=== PATIENT | male | born 1935 | race African-American/Black ===

== ENCOUNTER 2018-11-25 08:29 | Inpatient (IN) | payer MEDICARE, BC ==
[~2018-11-25] VITALS: Ht 182.9 cm; Wt 70.3 kg
[~2018-11-25 08:29] MED LIST: ASPI-986; PRAV80TA21; PROT40; TERA2CAP4; amlodipine; diovan; metformin; niacin
[2018-11-25] MEDS ORDERED: METHYLPREDNISOLONE SOD SUCC 125 MG/2 ML VIAL IV ONE (09:00)
[2018-11-25] MEDS ORDERED: DIPHENHYDRAMINE 50MG/ML VIAL IV ONE (09:00)
[2018-11-25] MEDS ORDERED: FAMOTIDINE 20MG/2ML VIAL IV ONE (09:00)
[2018-11-25 09:08] LABS: BASOPHILS % 0.4 % (0.0-2.0); EOSINOPHILS % 1.9 % (0.0-5.0); HEMATOCRIT. 39.6 % (42.0-52.0); HEMOGLOBIN. 13.7 g/dL (14.0-18.0); LYMPHOCYTES % 25.9 % (20.0-50.0); MEAN CORPUSCULAR HEMOGLOBIN 27.9 pg (28.0-32.0); MEAN CORPUSCULAR VOLUME 80.6 fL (80.0-94.0); MEAN PLATELET VOLUME 8.3 fl (7.4-10.4); MONOCYTES % 6.4 % (2.0-8.0); NEUTROPHILS % 65.4 % (40.0-76.0); PLATELET 250 x1000/uL (130-400); RED BLOOD CELL COUNT 4.91 mill/uL (4.7-6.1)
[2018-11-25 09:14] LABS: CHLORIDE 110 mEq/L (98-107)
[2018-11-25 09:17] LABS: PARTIAL THROMBOPLASTIN TIME 26.6 sec (23.4-31.0)
[2018-11-25] MEDS ORDERED: MAGNESIUM/ALUMINUM HYDROXIDE/SIMETHICONE 30ML UDC PO PRN (10:30)
[2018-11-25] MEDS ORDERED: CLONIDINE 0.1MG TABLET PO PRN (10:30)
[2018-11-25] MEDS ORDERED: DIPHENHYDRAMINE 50MG/ML VIAL IV PRN (10:30)
[2018-11-25] MEDS ORDERED: ACETAMINOPHEN 325MG TABLET PO PRN (10:30)
[2018-11-25] MEDS ORDERED: ONDANSETRON HCL 4MG/2ML INJ IV PRN (10:30)
[2018-11-25] MEDS ORDERED: METHYLPREDNISOLONE SOD SUCC 40 MG/ML VIAL IV SCH (12:36)
[2018-11-25 14:30] VITALS: BP 153/73
[2018-11-25 20:00] VITALS: BP_SYST 123; BP_SYST 158; BP_DIAS 58; BP_DIAS 83
[2018-11-25] MEDS ORDERED: TERA5CAP4 PO (21:19)
[2018-11-25] MEDS ORDERED: LISI40TA4 PO (21:19)
[2018-11-25] MEDS ORDERED: POTA20TA82 PO (21:19)
[2018-11-25] MEDS ORDERED: PRAV80TA21 PO (21:19)
[2018-11-25] MEDS ORDERED: RANI150C12 PO (21:19)
[2018-11-25] MEDS ORDERED: METF1000 PO (21:19)
[2018-11-25] MEDS ORDERED: AMLO10TA80 PO (21:19)
[2018-11-25] MEDS ORDERED: DEXTROSE 50% WATER 50ML SYRINGE IV PRN (21:30)
[2018-11-25] MEDS: METHYLPREDNISOLONE SOD SUCC 40 MG/ML VIAL IV SCH (21:34)
[2018-11-26] VITALS: BP 146/71
[2018-11-26 04:00] VITALS: BP 139/70
[2018-11-26 06:47] LABS: BASOPHILS % 0.2 % (0.0-2.0); HEMATOCRIT. 34.6 % (42.0-52.0); HEMOGLOBIN. 12.3 g/dL (14.0-18.0); LYMPHOCYTES % 8.8 % (20.0-50.0); MEAN CORPUSCULAR HEMOGLOBIN 28.3 pg (28.0-32.0); MEAN CORPUSCULAR VOLUME 79.8 fL (80.0-94.0); MEAN PLATELET VOLUME 8.3 fl (7.4-10.4); MONOCYTES % 3.2 % (2.0-8.0); NEUTROPHILS % 87.8 % (40.0-76.0); PLATELET 247 x1000/uL (130-400); RED BLOOD CELL COUNT 4.34 mill/uL (4.7-6.1); RED CELL DISTRIBUTION WIDTH 14.9 % (11.6-14.6)
[2018-11-26] MEDS ORDERED: BLOOD SUGAR DIAGNOSTIC STRIP TEST SCH (07:40)
[2018-11-26 07:45] LABS: CHLORIDE 112 mEq/L (98-107)
[2018-11-26 08:00] VITALS: BP 147/75
[2018-11-26] MEDS ORDERED: INSULIN LISPRO 100 UNITS/ML SUBCUT SCH (08:10)
[2018-11-26] MEDS: METHYLPREDNISOLONE SOD SUCC 40 MG/ML VIAL IV SCH (08:58)
[2018-11-26] MEDS ORDERED: AMLODIPINE 10MG TABLET PO SCH (09:00)
[2018-11-26] MEDS ORDERED: ASPIRIN 325MG EC TABLET PO SCH (09:00)
[2018-11-26 11:05] VITALS: BP 147/75
== END 2018-11-26 13:00 | disposition home or self-care (01) | DRG 916 ==
LOC: ER 08:29 → 7WST 09:22 → EDBEDREQ 09:23 → ENRESERV 12:53
PROVIDERS: ADMIT Hospitalist; ATTEND Hospitalist
DX: T78.3XXA Angioneurotic edema, initial encounter (principal); E11.65 Type 2 diabetes mellitus with hyperglycemia; E78.00 Pure hypercholesterolemia, unspecified; E78.5 Hyperlipidemia, unspecified; F17.210 Nicotine dependence, cigarettes, uncomplicated; T46.4X5A Adverse effect of angiotensin-converting-enzyme inhibitors, initial encounter; I10 Essential (primary) hypertension; I25.10 Atherosclerotic heart disease of native coronary artery without angina pectoris; Z82.49 Family history of ischemic heart disease and other diseases of the circulatory system; Z79.82 Long term (current) use of aspirin; Z79.84 Long term (current) use of oral hypoglycemic drugs; Z95.5 Presence of coronary angioplasty implant and graft; Y92.89 Other specified places as the place of occurrence of the external cause
CPT/HCPCS: 36415; 71045; 80048; 82962; 93005; 93970; 96374; 96375; 99285; J1200; J1815; J2920; J2930; J3490

== ENCOUNTER 2020-01-03 01:50 | Inpatient (IN) | payer MEDICARE, BC ==
[2020-01-03] VITALS (49 sets, daily range): BP systolic 76–176; BP diastolic 37–97
[~2020-01-03] VITALS: Ht 182.9 cm; Wt 63.1 kg
[~2020-01-03 01:50] MED LIST changes: +AMLO10TA80 PO; -ASPI-986; +METF1000 PO; +POTA20TA82 PO; -PRAV80TA21; +PRAV80TA21 PO; -PROT40; +RANI150C12 PO; -TERA2CAP4; +TERA5CAP4 PO; -amlodipine; -diovan; -metformin; -niacin
[2020-01-03] MEDS ORDERED: SODIUM CHLORIDE 0.9% 1,000 ML IV ONE ×3 (02:25→07:00)
[2020-01-03] MEDS ORDERED: ONDANSETRON HCL 4MG/2ML INJ IV STA (02:25)
[2020-01-03 02:51] LABS: CHLORIDE 112 mEq/L (98-107)
[2020-01-03 03:09] LABS: BASOPHILS % 0.4 % (0.0-2.0); EOSINOPHILS % 1.9 % (0.0-5.0); HEMATOCRIT. 30.1 % (42.0-52.0); HEMOGLOBIN. 10.5 g/dL (14.0-18.0); LYMPHOCYTES % 22.1 % (20.0-50.0); MEAN CORPUSCULAR HEMOGLOBIN 28.4 pg (28.0-32.0); MEAN CORPUSCULAR VOLUME 81.1 fL (80.0-94.0); MEAN PLATELET VOLUME 8.3 fl (7.4-10.4); MONOCYTES % 5.5 % (2.0-8.0); NEUTROPHILS % 70.1 % (40.0-76.0); PLATELET 246 x1000/uL (130-400); RED BLOOD CELL COUNT 3.71 mill/uL (4.7-6.1); RED CELL DISTRIBUTION WIDTH 16.3 % (11.6-14.6)
[2020-01-03 03:13] LABS: PROTHROMBIN TIME 10.6 sec (9.6-11.0)
[2020-01-03] MEDS: INSULIN LISPRO 100 UNITS/ML SUBCUT SCH ×4 (07:00→20:28)
[2020-01-03] MEDS ORDERED: ACETAMINOPHEN 325MG TABLET PO PRN ×2 (07:00)
[2020-01-03] MEDS ORDERED: IPRATROPIUM/ALBUTEROL 0.5-3(2.5)MG/3ML NEB ORI PRN (07:00)
[2020-01-03] MEDS ORDERED: NITROGLYCERIN 0.4MG TABLET SL SL PRN (07:00)
[2020-01-03] MEDS ORDERED: MAGNESIUM/ALUMINUM HYDROXIDE/SIMETHICONE 30ML UDC PO PRN (07:00)
[2020-01-03] MEDS ORDERED: DOCUSATE SODIUM 100MG CAPSULE PO PRN (07:00)
[2020-01-03] MEDS ORDERED: MORPHINE SULFATE 4 MG/ML CPJ (NOT FOR IM USE) IV PRN (07:00)
[2020-01-03] MEDS ORDERED: DEXTROSE 50% WATER 50ML SYRINGE IV PRN (07:00)
[2020-01-03] MEDS: PANTOPRAZOLE SODIUM 40 MG/VIAL IV SCH ×2 (07:45→17:50)
[2020-01-03] MEDS ORDERED: SODIUM CHLORIDE 0.9% 1,000 ML IV SCH (09:30)
[2020-01-03] MEDS ORDERED: DOPAMINE 400MG/250ML PREMIX 250 ML IV PRN (09:45)
[2020-01-03] MEDS ORDERED: PHENYLEPHRINE 10 MG in DEXT 5% WATER 249 ML IV PRN (09:45)
[2020-01-03 09:53] LABS: BG BASE EXCESS -11.6 mmol/L (-2.0-2.0); BG CARBOXYHEMOGLOBIN 0.4 % (0.5-1.5); BG DEOXYHEMOGLOBIN 1.8 % (0.0-5.0); BG FRACTION INSPIRED OXYGEN 2; BG HCO3 ACT 12.5 mmol/L (22.0-26.0); BG METHEMOGLOBIN 0.1 % (0.0-1.5); BG OXYGEN SATURATION 98.2 % (92.0-98.5); BG OXYHEMOGLOBIN 97.7 % (94.0-97.0); BG PCO2 22.3 mmHg (35.0-45.0); BG PH 7.367 (7.350-7.450); BG PO2 145.9 mmHg (75.0-100.0); BG SAMPLE SITE RIGHT RADIAL; BG VENT MODE NASAL CANNULA
[2020-01-03] MEDS: ONDANSETRON HCL 4MG/2ML INJ IV PRN ×2 (09:57→15:39)
[2020-01-03 10:48] LABS: BASOPHILS % 0.2 % (0.0-2.0); EOSINOPHILS % 0.1 % (0.0-5.0); HEMATOCRIT. 22.5 % (42.0-52.0); HEMOGLOBIN. 7.7 g/dL (14.0-18.0); LYMPHOCYTES % 14.2 % (20.0-50.0); MEAN CORPUSCULAR HEMOGLOBIN 30.1 pg (28.0-32.0); MEAN CORPUSCULAR VOLUME 88.5 fL (80.0-94.0); MEAN PLATELET VOLUME 9.4 fl (7.4-10.4); MONOCYTES % 3.9 % (2.0-8.0); NEUTROPHILS % 81.6 % (40.0-76.0); PLATELET 143 x1000/uL (130-400); RED BLOOD CELL COUNT 2.55 mill/uL (4.7-6.1); RED CELL DISTRIBUTION WIDTH 17.2 % (11.6-14.6)
[2020-01-03] MEDS ORDERED: SODIUM CHL 0.9% + KCL 20MEQ/L 1,000 ML IV SCH (11:00)
[2020-01-03] MEDS ORDERED: ALBUMIN HUMAN 25GM/500ML (5%) IV NR (11:00)
[2020-01-03] MEDS: NOREPINEPHRINE 4 MG in DEXT 5% WATER 246 ML IV PRN ×2 (11:13→13:44)
[2020-01-03] MEDS ORDERED: PIPERACILLIN/TAZOBACTAM 2.25 G in DEXTROSE 5% WATER 50 ML IV SCH (11:45)
[2020-01-03 11:58] LABS: CHLORIDE 121 mEq/L (98-107)
[2020-01-03 12:17] LABS: TOTAL IRON BINDING CAPACITY 208 ug/dL (250-450)
[2020-01-03] MEDS: BLOOD SUGAR DIAGNOSTIC STRIP TEST SCH ×3 (12:30→20:19)
[2020-01-03] MEDS: PIPERACILLIN/TAZOBACTAM 2.25 G in DEXTROSE 5% WATER 50 ML IV SCH ×2 (13:00→17:50)
[2020-01-03 15:21] LABS: VITAMIN B12 SERUM 710 pg/mL (211-911)
[2020-01-03 15:30] LABS: FOLIC ACID (FOLATE) SERUM > 20.00 ng/mL (>5.38)
[2020-01-03 15:53] LABS: HEMATOCRIT 24.3 % (42.0-52.0); HEMOGLOBIN 8.3 g/dL (14.0-18.0)
[2020-01-03 16:10] LABS: CREATINE KINASE MB FRACTION 1.2 ng/mL (0.5-3.6)
[2020-01-03] MEDS ORDERED: ZOLPIDEM TARTRATE 5MG TABLET PO PRN (21:00)
[2020-01-03 21:52] LABS: HEMATOCRIT 27.5 % (42.0-52.0); HEMOGLOBIN 9.6 g/dL (14.0-18.0)
[2020-01-03 22:10] LABS: CREATINE KINASE MB FRACTION 2.3 ng/mL (0.5-3.6)
[2020-01-04] VITALS (19 sets, daily range): BP systolic 100–177; BP diastolic 55–107
[2020-01-04] MEDS: PIPERACILLIN/TAZOBACTAM 2.25 G in DEXTROSE 5% WATER 50 ML IV SCH ×4 (00:18→17:34)
[2020-01-04 01:11] LABS: HEMOGLOBIN 9.5 g/dL (14.0-18.0)
[2020-01-04] MEDS: CLONIDINE 0.1MG TABLET PO PRN ×2 (01:27→17:34)
[2020-01-04 06:05] LABS: BASOPHILS % 0.1 % (0.0-2.0); HEMATOCRIT. 26.4 % (42.0-52.0); HEMOGLOBIN. 9.3 g/dL (14.0-18.0); LYMPHOCYTES % 8.8 % (20.0-50.0); MEAN CORPUSCULAR HEMOGLOBIN 30.2 pg (28.0-32.0); MEAN CORPUSCULAR VOLUME 85.4 fL (80.0-94.0); MEAN PLATELET VOLUME 9.3 fl (7.4-10.4); MONOCYTES % 7.3 % (2.0-8.0); NEUTROPHILS % 83.8 % (40.0-76.0); PLATELET 118 x1000/uL (130-400); RED BLOOD CELL COUNT 3.09 mill/uL (4.7-6.1); RED CELL DISTRIBUTION WIDTH 15.5 % (11.6-14.6)
[2020-01-04] MEDS: PANTOPRAZOLE SODIUM 40 MG/VIAL IV SCH ×2 (06:21→17:33)
[2020-01-04] MEDS: BLOOD SUGAR DIAGNOSTIC STRIP TEST SCH ×4 (07:50→20:52)
[2020-01-04] MEDS: INSULIN LISPRO 100 UNITS/ML SUBCUT SCH ×4 (08:20→21:00)
[2020-01-04] MEDS ORDERED: AMLODIPINE 2.5MG TABLET PO SCH (10:00)
[2020-01-04] MEDS ORDERED: SODIUM CHLORIDE 0.9% 1,000 ML IV SCH (10:15)
[2020-01-04] MEDS: METOPROLOL TARTRATE 50MG TABLET PO SCH ×2 (10:31→20:51)
[2020-01-04 12:09] LABS: HEMATOCRIT 26.1 % (42.0-52.0); HEMOGLOBIN 9.2 g/dL (14.0-18.0)
[2020-01-04] MEDS: DEXTROSE 5% WATER 1,000 ML IV SCH (19:06)
[2020-01-04 19:47] LABS: HEMATOCRIT 23.5 % (42.0-52.0)
[2020-01-04] MEDS: SORBITOL 70% SOLN 30ML PO SCH (20:49)
[2020-01-04] MEDS: AMLODIPINE 2.5MG TABLET PO SCH (20:52)
[2020-01-05] VITALS (8 sets, daily range): BP systolic 101–175; BP diastolic 54–94
[2020-01-05] MEDS: SORBITOL 70% SOLN 30ML PO SCH ×5 (00:04→16:00)
[2020-01-05] MEDS: PIPERACILLIN/TAZOBACTAM 2.25 G in DEXTROSE 5% WATER 50 ML IV SCH ×4 (00:05→18:19)
[2020-01-05 03:32] LABS: BASOPHILS % 0.1 % (0.0-2.0); EOSINOPHILS % 0.2 % (0.0-5.0); HEMATOCRIT. 25.2 % (42.0-52.0); HEMOGLOBIN. 8.8 g/dL (14.0-18.0); LYMPHOCYTES % 13.7 % (20.0-50.0); MEAN CORPUSCULAR HEMOGLOBIN 30.1 pg (28.0-32.0); MEAN CORPUSCULAR VOLUME 85.8 fL (80.0-94.0); MEAN PLATELET VOLUME 8.8 fl (7.4-10.4); MONOCYTES % 8.8 % (2.0-8.0); NEUTROPHILS % 77.2 % (40.0-76.0); PLATELET 115 x1000/uL (130-400); RED BLOOD CELL COUNT 2.93 mill/uL (4.7-6.1); RED CELL DISTRIBUTION WIDTH 15.2 % (11.6-14.6)
[2020-01-05 03:46] LABS: CHLORIDE 115 mEq/L (98-107)
[2020-01-05 03:54] LABS: PHOSPHORUS 2.8 mg/dL (2.5-4.9); PROTHROMBIN TIME 10.7 sec (9.6-11.0)
[2020-01-05] MEDS: PANTOPRAZOLE SODIUM 40 MG/VIAL IV SCH ×2 (06:31→18:19)
[2020-01-05] MEDS: BLOOD SUGAR DIAGNOSTIC STRIP TEST SCH ×4 (06:31→21:56)
[2020-01-05] MEDS: INSULIN LISPRO 100 UNITS/ML SUBCUT SCH ×4 (07:50→21:00)
[2020-01-05] MEDS: METOPROLOL TARTRATE 50MG TABLET PO SCH ×2 (08:50→21:55)
[2020-01-05] MEDS: AMLODIPINE 2.5MG TABLET PO SCH ×2 (08:51→21:56)
[2020-01-05] MEDS ORDERED: POTASSIUM CHLORIDE INJ 40 MEQ in DEXT 5% WATER 250 ML IV SCH (12:00)
[2020-01-05] MEDS: DEXTROSE 5% WATER 1,000 ML IV SCH ×2 (12:23→21:10)
[2020-01-05] MEDS: CLONIDINE 0.1MG TABLET PO PRN (14:01)
[2020-01-05] MEDS ORDERED: MIDAZOLAM HCL 5 MG/5 ML VIAL ONE (14:13)
[2020-01-05] MEDS ORDERED: FENTANYL CITRATE/PF 50MCG/ML 2ML VIAL ONE (14:13)
[2020-01-05] MEDS ORDERED: FENTANYL CITRATE/PF 50MCG/ML 2ML VIAL IV PRN (14:36)
[2020-01-05] MEDS ORDERED: MIDAZOLAM HCL 2 MG/2 ML VIAL IV PRN (14:37)
[2020-01-06] VITALS (10 sets, daily range): BP systolic 104–150; BP diastolic 59–69
[2020-01-06] MEDS: PIPERACILLIN/TAZOBACTAM 2.25 G in DEXTROSE 5% WATER 50 ML IV SCH ×5 (00:47→23:34)
[2020-01-06] MEDS: PANTOPRAZOLE SODIUM 40 MG/VIAL IV SCH ×2 (05:57→18:15)
[2020-01-06 06:50] LABS: HEMATOCRIT 25.1 % (42.0-52.0); HEMOGLOBIN 9.2 g/dL (14.0-18.0)
[2020-01-06] MEDS: BLOOD SUGAR DIAGNOSTIC STRIP TEST SCH ×4 (06:52→20:25)
[2020-01-06] MEDS: INSULIN LISPRO 100 UNITS/ML SUBCUT SCH ×4 (07:21→20:25)
[2020-01-06] MEDS: SORBITOL 70% SOLN 30ML PO SCH ×5 (08:00→23:34)
[2020-01-06] MEDS: METOPROLOL TARTRATE 50MG TABLET PO SCH ×2 (08:37→20:24)
[2020-01-06] MEDS: AMLODIPINE 2.5MG TABLET PO SCH ×2 (08:37→20:24)
[2020-01-06 09:43] LABS: INR 0.9; PROTHROMBIN TIME 10.1 sec (9.6-11.0)
[2020-01-07 00:01] VITALS: BP 124/61
[2020-01-07 04:00] VITALS: BP 142/67
[2020-01-07] MEDS: SORBITOL 70% SOLN 30ML PO SCH ×2 (04:00→08:50)
[2020-01-07] MEDS: PANTOPRAZOLE SODIUM 40 MG/VIAL IV SCH (05:05)
[2020-01-07] MEDS: PIPERACILLIN/TAZOBACTAM 2.25 G in DEXTROSE 5% WATER 50 ML IV SCH (05:05)
[2020-01-07 06:11] LABS: CHLORIDE 111 mEq/L (98-107)
[2020-01-07] MEDS: BLOOD SUGAR DIAGNOSTIC STRIP TEST SCH (06:32)
[2020-01-07] MEDS: INSULIN LISPRO 100 UNITS/ML SUBCUT SCH (07:50)
[2020-01-07 08:00] VITALS: BP 135/68
[2020-01-07 08:27] LABS: BASOPHILS % 0.2 % (0.0-2.0); EOSINOPHILS % 1.6 % (0.0-5.0); HEMATOCRIT. 27.7 % (42.0-52.0); LYMPHOCYTES % 20.8 % (20.0-50.0); MEAN CORPUSCULAR HEMOGLOBIN 31.2 pg (28.0-32.0); MEAN CORPUSCULAR VOLUME 86.4 fL (80.0-94.0); MEAN PLATELET VOLUME 8.7 fl (7.4-10.4); MONOCYTES % 9.8 % (2.0-8.0); NEUTROPHILS % 67.6 % (40.0-76.0); PLATELET 139 x1000/uL (130-400); RED BLOOD CELL COUNT 3.21 mill/uL (4.7-6.1); RED CELL DISTRIBUTION WIDTH 14.8 % (11.6-14.6)
[2020-01-07] MEDS: AMLODIPINE 2.5MG TABLET PO SCH (08:54)
[2020-01-07] MEDS: METOPROLOL TARTRATE 50MG TABLET PO SCH (08:55)
[2020-01-07 09:13] VITALS: BP 135/68
== END 2020-01-07 10:00 | disposition home health service (06) | DRG 377 ==
LOC: ER 01:50 → MICUSO 05:04 → EDBEDREQTM 05:05 → EDBEDREQ 05:05 → CVICU 09:19 → 6WST 01-04 15:59
PROVIDERS: ADMIT Internal Medicine; ATTEND Internal Medicine
PROC: 30233N1 Transfusion of Nonautologous Red Blood Cells into Peripheral Vein, Percutaneous Approach (ICD-10-PCS; 2020-01-03)
PROC: B54MZZA Ultrasonography of Right Upper Extremity Veins, Guidance (ICD-10-PCS; 2020-01-03)
PROC: 05HY33Z Insertion of Infusion Device into Upper Vein, Percutaneous Approach (ICD-10-PCS; 2020-01-03)
PROC: 0DBK8ZZ Excision of Ascending Colon, Via Natural or Artificial Opening Endoscopic (ICD-10-PCS; principal; 2020-01-05)
PROC: 0DBE8ZX Excision of Large Intestine, Via Natural or Artificial Opening Endoscopic, Diagnostic (ICD-10-PCS; 2020-01-05)
PROC: 0DBH8ZX Excision of Cecum, Via Natural or Artificial Opening Endoscopic, Diagnostic (ICD-10-PCS; 2020-01-05)
DX: K57.31 Diverticulosis of large intestine without perforation or abscess with bleeding (principal); N17.0 Acute kidney failure with tubular necrosis; E43 Unspecified severe protein-calorie malnutrition; R57.1 Hypovolemic shock; D62 Acute posthemorrhagic anemia; E87.0 Hyperosmolality and hypernatremia; E87.2 Acidosis; G40.89 Other seizures; Z68.1 Body mass index [BMI] 19.9 or less, adult; N18.9 Chronic kidney disease, unspecified; E11.22 Type 2 diabetes mellitus with diabetic chronic kidney disease; E87.6 Hypokalemia; E78.00 Pure hypercholesterolemia, unspecified; E78.5 Hyperlipidemia, unspecified; I25.10 Atherosclerotic heart disease of native coronary artery without angina pectoris; I10 Essential (primary) hypertension; E83.51 Hypocalcemia; F17.210 Nicotine dependence, cigarettes, uncomplicated; K21.9 Gastro-esophageal reflux disease without esophagitis; K63.89 Other specified diseases of intestine; Z82.3 Family history of stroke; Z82.49 Family history of ischemic heart disease and other diseases of the circulatory system; Z85.46 Personal history of malignant neoplasm of prostate; I25.2 Old myocardial infarction; Z90.79 Acquired absence of other genital organ(s); Z95.5 Presence of coronary angioplasty implant and graft; Z88.8 Allergy status to other drugs, medicaments and biological substances; Z79.84 Long term (current) use of oral hypoglycemic drugs; Z79.899 Other long term (current) drug therapy; D12.2 Benign neoplasm of ascending colon
CPT/HCPCS: 36415; 36600; 71045; 74176; 76937; 78278; 80048; 80053; 82270; 82375; 82550; 82553; 82607; 82728; 82746; 82805; 82962; 83036; 83540; 83550; 83735; 84100; 84484; 85014; 85018; 85025; 85044; 85049; 85384; 85651; 86850; 86900; 86920; 88305; 93005; 93306; 93970; 97162; 97166; 99291; A9560; C1725; C9113; J1815; J2250; J2405; J2543; J3010; J3480; J3490; J7030; J7060; J7070; P9016; P9041

== ENCOUNTER 2020-12-04 10:44 | Inpatient (IN) | payer MEDICARE, BC ==
[~2020-12-04] VITALS: Ht 185.4 cm; Wt 66.0 kg
[2020-12-04] MEDS ORDERED: SODIUM CHLORIDE 0.9% 1,000 ML IV ONE (11:30)
[2020-12-04] MEDS ORDERED: MORPHINE SULFATE 2 MG/ML CPJ (NOT FOR IM USE) IV NR (11:33)
[2020-12-04 11:38] LABS: HEMATOCRIT. 34.3 % (42.0-52.0); HEMOGLOBIN. 12.1 g/dL (14.0-18.0); MEAN CORPUSCULAR HEMOGLOBIN 28.5 pg (28.0-32.0); MEAN CORPUSCULAR VOLUME 80.4 fL (80.0-94.0); MEAN PLATELET VOLUME 7.9 fl (7.4-10.4); PLATELET 233 x1000/uL (130-400); RED BLOOD CELL COUNT 4.26 mill/uL (4.7-6.1); RED CELL DISTRIBUTION WIDTH 15.8 % (11.6-14.6)
[2020-12-04 11:39] LABS: CLARITY URINE CLEAR (CLEAR); COLOR URINE YELLOW (YELLOW); KETONES URINE NEGATIVE (NEGATIVE); LEUKOCYTE ESTERASE URINE NEGATIVE (NEGATIVE); NITRITE URINE NEGATIVE (NEGATIVE); OCCULT BLOOD URINE TRACE (NEGATIVE); PROTEIN URINE 2+ (NEGATIVE); SPECIFIC GRAVITY URINE 1.018 (1.005-1.030); UROBILINOGEN URINE 0.2 E.U./dL (0.2-1.0)
[2020-12-04 11:45] LABS: CHLORIDE 103 mEq/L (98-107)
[2020-12-04 11:49] LABS: PROTHROMBIN TIME 10.8 sec (9.6-11.0)
[2020-12-04] MEDS ORDERED: POTASSIUM CHLORIDE INJ 40 MEQ in DEXT 5% WATER 250 ML IV NR (12:15)
[2020-12-04] MEDS ORDERED: LACTATED RINGERS 1,000 ML IV SCH (12:15)
[2020-12-04] MEDS ORDERED: AMIODARONE HCL 150 MG in DEXT 5% WATER 97 ML IV ONE (12:30)
[2020-12-04] MEDS ORDERED: MAGNESIUM 1 G PREMIX 100 ML IV ONE (12:30)
[2020-12-04] MEDS ORDERED: HYDRALAZINE 20MG/ML VIAL IV SCH (13:15)
[2020-12-04] MEDS ORDERED: POTASSIUM CHLORIDE 20MEQ/PACKET PO SCH (14:00)
[2020-12-04 14:23] LABS: PLATELET ESTIMATE NORMAL
[2020-12-04] MEDS ORDERED: IOHEXOL-300 100 ML BOTTLE ONE (14:26)
[2020-12-04] MEDS ORDERED: AMLODIPINE 10MG TABLET PO ONE (15:15)
[2020-12-04] MEDS ORDERED: GUAIFENESIN 200MG/10ML SUGAR FREE UDC PO PRN (15:30)
[2020-12-04] MEDS ORDERED: HYDROCODONE/ACETAMINOPHEN 5/325MG TABLET PO PRN (15:30)
[2020-12-04] MEDS ORDERED: LORAZEPAM 2MG/ML CPJ IV PRN (15:30)
[2020-12-04] MEDS ORDERED: IPRATROPIUM/ALBUTEROL 0.5-3(2.5)MG/3ML NEB HHN PRN (15:30)
[2020-12-04] MEDS ORDERED: ONDANSETRON HCL 4MG/2ML INJ IV PRN (15:30)
[2020-12-04] MEDS ORDERED: MAGNESIUM/ALUMINUM HYDROXIDE/SIMETHICONE 30ML UDC PO PRN (15:30)
[2020-12-04] MEDS ORDERED: DIPHENHYDRAMINE 50MG/ML VIAL IV PRN (15:30)
[2020-12-04] MEDS ORDERED: ACETAMINOPHEN 325MG TABLET PO PRN (15:30)
[2020-12-04] MEDS ORDERED: MORPHINE SULFATE 2 MG/ML CPJ (NOT FOR IM USE) IV PRN (15:30)
[2020-12-04] MEDS ORDERED: BISACODYL 10MG SUPP PR PRN (16:15)
[2020-12-04 17:45] VITALS: BP 156/89
[2020-12-04] MEDS ORDERED: INFLUENZA VACCINE 05/PF 0.5 ML VIAL IM ONE (18:15)
[2020-12-04 18:30] VITALS: BP 179/110
[2020-12-04 18:43] VITALS: BP 181/88
[2020-12-04] MEDS: METOCLOPRAMIDE HCL 10MG/2ML VIAL IV SCH (18:51)
[2020-12-04] MEDS: HYDRALAZINE 20MG/ML VIAL IV PRN (18:53)
[2020-12-04] MEDS: ENOXAPARIN 40MG/0.4ML SYR SUBCUT SCH (18:54)
[2020-12-04] MEDS: DEXT 5%/0.45% NACL 1000ML 1,000 ML IV SCH (19:45)
[2020-12-04 19:51] VITALS: BP 153/86
[2020-12-04 21:41] VITALS: BP 151/77
[2020-12-04] MEDS: DOCUSATE SODIUM 100MG CAPSULE PO PRN (21:42)
[2020-12-04] MEDS: SODIUM CHLORIDE 0.9% INJ 3ML FLUSH IVF SCH (21:43)
[2020-12-04 22:28] LABS: CREATINE KINASE MB FRACTION 2.9 ng/mL (0.5-3.6)
[2020-12-04 23:41] VITALS: BP 158/95
[2020-12-05] VITALS (14 sets, daily range): BP systolic 102–175; BP diastolic 61–107
[2020-12-05] MEDS ORDERED: KCL 20MEQ/100ML PREMIX 100 ML IV PRN
[2020-12-05] MEDS: METOCLOPRAMIDE HCL 10MG/2ML VIAL IV SCH ×5 (00:50→23:40)
[2020-12-05] MEDS ORDERED: POTASSIUM CHLORIDE INJ 60 MEQ in DEXT 5% WATER 250 ML IV PRN (03:30)
[2020-12-05] MEDS ORDERED: POTASSIUM CHLORIDE INJ 40 MEQ in DEXT 5% WATER 250 ML IV PRN (03:30)
[2020-12-05] MEDS: CLONIDINE 0.1MG TABLET PO PRN ×2 (03:36→19:00)
[2020-12-05] MEDS: SODIUM CHLORIDE 0.9% INJ 3ML FLUSH IVF SCH ×3 (06:18→22:12)
[2020-12-05 06:44] LABS: BASOPHILS % 0.3 % (0.0-2.0); EOSINOPHILS % 0.2 % (0.0-5.0); HEMOGLOBIN. 10.8 g/dL (14.0-18.0); LYMPHOCYTES % 8.5 % (20.0-50.0); MEAN CORPUSCULAR HEMOGLOBIN 28.6 pg (28.0-32.0); MEAN PLATELET VOLUME 8.4 fl (7.4-10.4); MONOCYTES % 7.9 % (2.0-8.0); NEUTROPHILS % 83.1 % (40.0-76.0); PLATELET 211 x1000/uL (130-400); RED BLOOD CELL COUNT 3.78 mill/uL (4.7-6.1); RED CELL DISTRIBUTION WIDTH 16.3 % (11.6-14.6)
[2020-12-05 06:52] LABS: CHLORIDE 108 mEq/L (98-107)
[2020-12-05 07:08] LABS: CREATINE KINASE 73 IU/L (39-308)
[2020-12-05 07:11] LABS: CREATINE KINASE MB FRACTION 2.5 ng/mL (0.5-3.6)
[2020-12-05] MEDS: DEXT 5%/0.45% NACL 1000ML 1,000 ML IV SCH ×2 (13:37→23:51)
[2020-12-05] MEDS: ENOXAPARIN 40MG/0.4ML SYR SUBCUT SCH (15:59)
[2020-12-05] MEDS: HYDRALAZINE 20MG/ML VIAL IV PRN (16:00)
[2020-12-06] VITALS (10 sets, daily range): BP systolic 92–160; BP diastolic 62–85
[2020-12-06] MEDS: SODIUM CHLORIDE 0.9% INJ 3ML FLUSH IVF SCH ×2 (06:02→15:04)
[2020-12-06] MEDS: METOCLOPRAMIDE HCL 10MG/2ML VIAL IV SCH ×3 (06:02→17:40)
[2020-12-06 06:40] LABS: BASOPHILS % 0.4 % (0.0-2.0); EOSINOPHILS % 1.2 % (0.0-5.0); HEMATOCRIT. 28.8 % (42.0-52.0); HEMOGLOBIN. 10.1 g/dL (14.0-18.0); LYMPHOCYTES % 12.3 % (20.0-50.0); MEAN CORPUSCULAR HEMOGLOBIN 28.6 pg (28.0-32.0); MEAN CORPUSCULAR VOLUME 81.3 fL (80.0-94.0); MONOCYTES % 9.3 % (2.0-8.0); NEUTROPHILS % 76.8 % (40.0-76.0); PLATELET 187 x1000/uL (130-400); RED BLOOD CELL COUNT 3.54 mill/uL (4.7-6.1); RED CELL DISTRIBUTION WIDTH 16.1 % (11.6-14.6)
[2020-12-06 06:42] LABS: CHLORIDE 105 mEq/L (98-107)
[2020-12-06] MEDS ORDERED: POTASSIUM CHLORIDE 20MEQ TABLET SR PO NR ×2 (09:45→14:00)
[2020-12-06] MEDS: DOCUSATE SODIUM 100MG CAPSULE PO PRN (11:23)
[2020-12-06] MEDS: CLONIDINE 0.1MG TABLET PO PRN (11:23)
[2020-12-06] MEDS: ENOXAPARIN 40MG/0.4ML SYR SUBCUT SCH (15:04)
[2020-12-06] MEDS: DEXT 5%/0.45% NACL 1000ML 1,000 ML IV SCH (17:30)
== END 2020-12-06 17:55 | disposition home health service (06) | DRG 389 ==
LOC: ER 10:44 → 3WST 14:39 → ENRESERV 15:12
PROVIDERS: ADMIT Internal Medicine; ATTEND Internal Medicine
DX: K56.7 Ileus, unspecified (principal); Z68.1 Body mass index [BMI] 19.9 or less, adult; E87.2 Acidosis; E87.6 Hypokalemia; K57.30 Diverticulosis of large intestine without perforation or abscess without bleeding; I71.4 Abdominal aortic aneurysm, without rupture; E78.00 Pure hypercholesterolemia, unspecified; E78.5 Hyperlipidemia, unspecified; E86.0 Dehydration; F17.210 Nicotine dependence, cigarettes, uncomplicated; I10 Essential (primary) hypertension; I25.10 Atherosclerotic heart disease of native coronary artery without angina pectoris; I45.10 Unspecified right bundle-branch block; K21.9 Gastro-esophageal reflux disease without esophagitis; K44.9 Diaphragmatic hernia without obstruction or gangrene; Z85.46 Personal history of malignant neoplasm of prostate; Z87.19 Personal history of other diseases of the digestive system; Z90.79 Acquired absence of other genital organ(s); Z98.61 Coronary angioplasty status; Z88.8 Allergy status to other drugs, medicaments and biological substances; Z79.84 Long term (current) use of oral hypoglycemic drugs; R77.8 Other specified abnormalities of plasma proteins; R56.9 Unspecified convulsions; R63.6 Underweight; E11.65 Type 2 diabetes mellitus with hyperglycemia
CPT/HCPCS: 36415; 71045; 74018; 74177; 80048; 80053; 81003; 82550; 82553; 82962; 83605; 83735; 84132; 84443; 84484; 85025; 90686; 93005; 99291; J0360; J1650; J2270; J2765; J3475; J3480; J7060; Q9967